=== PATIENT | male | born 1940 | race Caucasian/White ===

== ENCOUNTER 2017-03-27 10:47 | Outpatient (CLI) | payer MEDICARE ==
[2017-03-27 12:24] LABS: #Eosinphils 0.1 thou/uL (0.0-0.7); #Lymphocytes 1.7 thou/uL (1.20-3.40); #Monocytes 0.4 thou/uL (0.11-0.59); #Neutrophils 1.8 thou/uL (1.40-6.50); %Basophils 0.9 % (0.0-1.0); %Eosinophils 2.9 % (0.0-10.0); %Lymphocytes 42.3 % (21.0-51.0); %Monocytes 10.2 % (0.0-10.0); %Neutrophils 43.7 % (42.0-75.0); Hemoglobin 12.3 g/dL (14.0-18.0); Mean Corpuscular HGB CONC 32.8 g/dL (32.0-36.0); Mean Corpuscular Hemoglobin 31.3 pg (27.0-31.0); Mean Corpuscular Volume 95.3 fl (80.0-94.0); Mean Platelet Volume 7.7 fL (7.4-10.4); Platelet Count 142 thou/uL (130-400); RBC Distribution Width 11.9 % (11.5-14.5); Red Blood Cell (RBC) Count 3.94 mill/uL (4.70-6.10); White Blood Cell (WBC) Count 4.1 thou/uL (4.8-10.8)
[2017-03-27 12:49] LABS: ALT (SGPT) 14 U/L (8-55); AST (SGOT) 18 U/L (5-34); Albumin 4.3 g/dL (3.4-4.8); Alkaline Phosphatase 29 U/L (40-150); Anion Gap 14 mmol/L (10-20); BUN (Urea Nitrogen) 22 mg/dL (8.4-25.7); Bilirubin, Total 0.7 mg/dL (0.2-1.2); Calc. Creatinine Clearance 0 mL/min (70-130); Calcium 9.1 mg/dL (7.8-10.44); Carbon Dioxide 22 mmol/L (23-31); Cardiac Risk 3.4 (Less than 4.5); Chloride 108 mmol/L (98-107); Cholesterol 132 mg/dl (< 200 Desired); Estimated GFR-MDRD 51; Globulin 2.7 g/dL (2.4-3.5); Glucose 90 mg/dL (83-110); HDL Cholesterol 39 mg/dL (>60 Neg Risk); LDL Cholesterol, Calculated 74 mg/dL; Potassium 4.2 mmol/L (3.5-5.1); Sodium 140 mmol/L (136-145); Triglycerides 94 mg/dL (Less than 150)
[2017-03-27 12:51] LABS: Bilirubin Negative (Negative); Blood, Urine Negative (Negative); Clarity Clear (Clear); Glucose, Urine (Dipstick) Negative (Negative); Leukocyte Negative (Negative); Nitrite Negative (Negative); Protein, Urine (Dipstick) Negative (Neg-Trace); Specific Gravity, Urine 1.025 (1.005-1.030); Urobilinogen 0.2 mg/dL (0.2-1.0); pH, Urine 5.5 (5.0-9.0)
[2017-03-27 13:02] LABS: PSA-Asymptomatic (SCREENING) 3.77 ng/mL (0-4.0); Thyroid Stimulating Hormone 4.3816 uIU/mL (0.35-4.94)
== END 2017-03-27 10:48 | disposition home or self-care (01) ==
LOC: NAVSJIPCSP 10:47
PROVIDERS: ATTEND Internal Medicine
DX: Z12.5 Encounter for screening for malignant neoplasm of prostate (principal); E78.5 Hyperlipidemia, unspecified; N40.0 Benign prostatic hyperplasia without lower urinary tract symptoms; Z85.72 Personal history of non-Hodgkin lymphomas
CPT/HCPCS: 36415; 80053; 80061; 81003; 84443; 85025; G0103

== ENCOUNTER 2017-12-07 09:52 | Emergency (ER) | payer MEDICARE ==
--- NOTE | 2017-12-07 11:59 | RAD ---
CHEST 2 VIEWS: HISTORY: Cough. COMPARISON: PET CT from 11/30/16. FINDINGS: Cardiac silhouette and pulmonary vasculature are unremarkable. Mediastinum is midline. Left upper l obe nodule correlates with the mass on PET scan. No evidence of pneumothorax or pleural fluid. IMPRESSION: Stable radiographic appearance of the chest. POS: [facility]
== END 2017-12-07 10:55 | disposition home or self-care (01) ==
LOC: NAV ERS 09:52
DX: R21 Rash and other nonspecific skin eruption (principal); E78.5 Hyperlipidemia, unspecified; Z79.899 Other long term (current) drug therapy
CPT/HCPCS: 71046

== ENCOUNTER 2018-03-04 16:13 | Outpatient (CLI) | payer MEDICARE ==
--- NOTE | 2018-03-04 16:32 | RAD ---
PA AND LATERAL CHEST X-RAY 03/04/18 HISTORY: Shortness of breath. Patient complains of hoarseness for two weeks. History of cancer. COMPARISON: 12/07/17. FINDINGS: The cardiac silhouette and pulmonary vasculature are within normal limits. The left upper lobe pulmon silvia nodule overlying the left hilar region is again present and unchanged. There is symmetric biapica l pleural thickening noted. There is eventration of the right hemidiaphragm. Lungs are otherwise case r. There has been on other interval change compared to the prior exam. The cardiac silhouette and pul monary vasculature are within normal limits. IMPRESSION: 1. Stable left upper lobe pulmonary nodule. 2. No acute cardiopulmonary process. POS: [facility]
== END 2018-03-04 16:14 | disposition home or self-care (01) ==
LOC: NAV RAD 16:13
PROVIDERS: ATTEND Internal Medicine
DX: R49.0 Dysphonia (principal); R91.1 Solitary pulmonary nodule; Z85.72 Personal history of non-Hodgkin lymphomas
CPT/HCPCS: 71046

== ENCOUNTER 2023-05-13 02:22 | Emergency (ER) | payer MEDICARE, OTHER | END 2023-05-13 03:10 | disposition home or self-care (01) | LOC: NAV ERS 02:22 | DX: K22.2 Esophageal obstruction (principal); E78.00 Pure hypercholesterolemia, unspecified; Z79.899 Other long term (current) drug therapy; Z85.850 Personal history of malignant neoplasm of thyroid | CPT/HCPCS: 99283 ==